=== PATIENT | female | born 1955 | race African-American/Black ===

== ENCOUNTER 2017-01-16 05:12 | Emergency (ER) | payer OTHER, MEDICAID ==
[2017-01-16 05:18] VITALS: BMI 50.8
--- NOTE | 2017-01-16 05:33 | DR.GENAD ---
HPI - PCP Primary Care Physician: DEVIN - HPI Comment HPI Comment: OUT OF BP MED FOR SEVERAL DAYS. BP ELEVATED NOW WITH HEADACHE. - Complaint/Symptoms Chief Complaint Doctors Comments: ELEVATED BP. Chief Complaint:: PT C/O HIGH BP. PT STATES SHE CAN'T FIND HER BP MEDICATION AND HAS NOT HAD IT SINCE TUESDAY. - Nurses notes reviewed Nurses Notes Review: Yes - Source History Provided: Patient - Mode of Arrival Mode of Arrival: Ambulatory - Timing Onset of Chief Complaint: 01/16/17 Came on: Gradually - Duration Duration: Constant Duration: Days - Severity Severity: Moderate PMH - PMH Past Medical History: Yes Past Medical History: Anxiety, Hypertension Past Surgical History: Yes Surgical History: Joint Replacement, Ortho Surgery - Family History History of Family Medical Conditions: Yes Family Medical History: Hypertension - Social History Does any household member use tobacco: No Alcohol Use: None Do you use any recreational Drugs:: No Lives With: Family Lives Where: Home - infectious screening In the last 2 months have you had wt loss of >10#?: NO Have you had fever, night sweats or hemotysis?: No Have you traveled outside the country in the last 6 months?: No Isolation: Standard ROS - Review of Systems Constitutional: No Symptoms Reported Eyes: No Symptoms Reported ENTM: No Symptoms Reported Respiratoy: No Symptoms Reported Cardiovascular: Other (ELEVATED BP.) Gastrointestinal/Abdominal: No Symptoms Reported Genitourinary: No Symptoms Reported Neurological: No Symptoms Reported Musculoskeletal: No Symptoms Reported Integumentary: No Symptoms Reported Hematologic/Lymphatic: No Symptoms Reported Endocrine: No Symptoms Reported All Other Systems: Reviewed and Negative PE - Vital Signs Vitals: Temperature 98.0 F Pulse Rate [Left Brachial] 75 Pulse Rate 70 Respiratory Rate 20 Blood Pressure [Left Arm] 142/66 Blood Pressure [Left Radial 116/82 Artery] Blood Pressure 176/79 O2 Sat by Pulse Oximetry 94 - General Limitations: No Limitations General Appearance: Alert - Head Head Exam: Normal Inspection - Eyes Eye exam: Normal Appearance - ENT ENT Exam: Normal External Ear Exam External Ear Exam: Normal External Inspection TM/Canal Exam: Bilateral Normal Nose Exam: Normal Nose Exam Mouth Exam: Normal Inspection Throat Exam: Normal Inspection - Neck Neck Exam: Normal Inspection - Chest Chest Inspection: Symmetric Chest Wall Rise - Respiratory Respiratory Exam: Normal Lung Sounds Bilat Respiratory Exam: Bilateral Clear to Auscultation - Cardiovascular Cardiovascular Exam: Regular Rate, Normal Rhythm, Normal Heart Sounds - Abdominal Exam Abdominal Exam: Normal Bowel Sounds, Soft. negative: Tenderness - Extremities Extremities Exam: Normal Inspection - Back Back Exam: Normal Inspection - Neurologic Neurological Exam: Alert, Oriented X3 - Psychiatric Psychiatric Exam: Normal Affect, Normal Mood - Skin Skin Exam: Normal Color MDM - Differential Diagnosis Differential Diagnosis: HYPERTENSION/UNCONTROL Course - Treatment Treatment: SEE ORDERS. BP MED IN ED. BP IMPROVING. - Education/Counseling Education/Counseling: Patient, Education Educated On: Treatment, Diagnosis, Needs for Follow Up - Diagnosis Discharge Problem: Hypertension Qualifiers: Hypertension type: essential hypertension Qualified Code(s): I10 - Essential ( primary) hypertension - Discharge Plan Condition: Stable Prescriptions: Amoxicillin [Amoxil 875 mg] 875 mg PO Q12H #20 tab Benzonatate [TESSALON PERLES *] 200 mg PO TID PRN #30 cap PRN Reason: Cough Clonidine HCl [CATAPRES 0.2 MG TAB *] 0.2 mg PO BID #60 tab - Follow ups/Referrals Follow ups/Referrals: Anival Tobar [Primary Care Provider] - 3 days - Instructions Instructions: Acute Bronchitis, [id number], Hypertension, [id number] Additional Instructions: RETURN TO ED IF WORSE.
[2017-01-16] MEDS ORDERED: NIFEDIPINE CAP 10 MG PO ONE (05:42)
[2017-01-16] MEDS ORDERED: NIFEDIPINE CAP 10 MG ONE (05:46)
[2017-01-16 06:37] VITALS: BP 142/66
== END 2017-01-16 07:30 | disposition home or self-care (01) ==
LOC: ER 05:12
DX: I10 Essential (primary) hypertension (principal)
CPT/HCPCS: 99282

== ENCOUNTER 2017-02-17 09:28 | Day surgery (SDC) | payer OTHER, MEDICAID ==
[2017-02-17] MEDS ORDERED: D5 LR 1000 ML 1,000 ML IV ONE (09:34)
[2017-02-17] MEDS ORDERED: DIPRIVAN VIAL 20 ML ONE ×2 (10:18→10:28)
[2017-02-17 10:55] VITALS: BP 120/51
== END 2017-02-17 11:00 | disposition home or self-care (01) ==
LOC: SURG1 09:28
PROVIDERS: ATTEND Internal Medicine Gastroenterology
PROC: 0DJD8ZZ Inspection of Lower Intestinal Tract, Via Natural or Artificial Opening Endoscopic (ICD-10-PCS; principal; 2017-02-17 12:15)
DX: Z12.11 Encounter for screening for malignant neoplasm of colon (principal); R19.4 Change in bowel habit; R63.4 Abnormal weight loss; K57.30 Diverticulosis of large intestine without perforation or abscess without bleeding; K64.0 First degree hemorrhoids
CPT/HCPCS: A4217; J3490; J7120

== ENCOUNTER → 2017-09-01 | Outpatient (CLI) | payer OTHER, MEDICAID ==
--- NOTE | 2017-09-01 15:38 | MRI ---
History: Right shoulder pain Technique: Multiplanar, multi sequence MR imaging of the right shoulder was performed without IV cont rast. Comparison:NONE Findings: There is a large complete full-thickness tear of the supraspinatus tendon which is retracted to 3.8 c m, just lateral to the supraglenoid tubercle. The infra spinatus tendon is diffusely thinned, particu larly along its anterior margin consistent with a high-grade partial-thickness tear there is a full-t hickness component involving the anterior infra spinatus tendon measuring 12 mm without a 2.8 cm of r etraction. Teres minor tendon appears thickened but grossly intact. There is diffuse tendinosis of th e sub scapularis tendon with a full-thickness tear superiorly. There is severe fatty atrophy of supr aspinatus infra spinatus and sub scapularis. There is a small amount of glenohumeral joint fluid, within normal limits for physiologic volume. The bicipital groove appear shallow. The long head biceps tendon is not discretely seen superiorly withi n the bicipital groove however the tendon appears thickened DIS distal to the groove, likely torn and retracted. The intra-articular long head biceps tendon is not visualized the biceps anchor STIR horn , with a complex degenerative appearing tear of the superior labrum. There is moderate glenohumeral o steoarthrosis. There is grade 3 chondral disease along the superomedial humeral head, and superior gl enoid.. There is increased T2 signal within the anterior deltoid, with perifascial edema noted along its supe rficial fascia. The tendon appears thickened with some fluid signal consistent with a partial-thickne ss tear. There is moderate acromioclavicular osteoarthrosis with synovitis and hypertrophic changes, in additi on to an anterior inferior acromial spur, resulting in narrowing of the subacromial space. Impression: 1. Complete full-thickness tear of the supraspinatus tendon, with involvement of the anterior infra s pinatus tendon. The tendon is retracted just lateral to the glenoid, with severe fatty atrophy consis tent with chronic tear. There is also a chronic full-thickness tear of the superior sub scapularis. 2. Grade 2 myotendinous strain/partial-thickness tear of the anterior deltoid. 3. Full-thickness tear of the long head biceps tendon which is not visible the level the bicipital gr oove and felt to be torn and distally retracted. There is complex degenerative tearing of superior la carmel. 4. Glenohumeral osteoarthrosis with grade 3 chondral disease. 5. Moderate acromioclavicular osteoarthrosis with synovitis and hypertrophic changes, in addition to an anterior inferior acromial spur, resulting in narrowing of subacromial space 6. Other findings as above Reported By:
== END ==
LOC: RAD 12:59
PROVIDERS: ATTEND Internal Medicine
DX: M25.511 Pain in right shoulder (principal)
CPT/HCPCS: 73221